=== PATIENT | female | born 1995 | race Two or more races ===

== ENCOUNTER → 2024-03-12 | Outpatient (REF) | payer OTHER ==
[2024-03-15 11:57] LABS: HPV APTIMA Not Detected (Not Detected)
== END ==
LOC: M SFHCWAGY 17:46
PROVIDERS: ATTEND Nurse Practitioner Family
DX: Z12.4 Encounter for screening for malignant neoplasm of cervix (principal); R87.5 Abnormal microbiological findings in specimens from female genital organs
CPT/HCPCS: 87624; G0123

== ENCOUNTER → 2025-04-23 | Outpatient (REF) | payer OTHER ==
[2025-04-28 04:07] LABS: HPV APTIMA Not Detected (Not Detected)
== END ==
LOC: M PLALAB 13:52
PROVIDERS: ATTEND Physician Assistant
DX: Z12.4 Encounter for screening for malignant neoplasm of cervix (principal)
CPT/HCPCS: 87624; G0123

== ENCOUNTER → 2025-05-18 | Outpatient (CLI) | payer OTHER ==
[2025-05-18 14:16] LABS: FREE T4 1.11 NG/DL (0.89-1.76)
[2025-05-18 14:17] LABS: LUTEINIZING HORMONE 2.7 mIU/ML; PROGESTERONE 10.3 NG/ML; PROLACTIN 12.29 NG/ML
== END ==
LOC: M PLALAB 09:52
PROVIDERS: ATTEND Specialist
DX: N92.6 Irregular menstruation, unspecified (principal)

== ENCOUNTER 2025-05-29 10:04 | Emergency (ER) | payer OTHER ==
[~2025-05-29] VITALS: Ht 157.5 cm; Wt 65.6 kg
[2025-05-29 12:07] LABS: PLATELET COUNT, AUTOMATED 230 10^3/uL (150-450)
[2025-05-29 12:26] LABS: KETONE, URINE AUTO RFX NEGATIVE (NEGATIVE); LEUKOCYTE ESTERASE UR AUTO RFX NEGATIVE (NEGATIVE); NITRITE, URINE AUTO RFX NEGATIVE (NEGATIVE); RBC, URINE AUTO RFX 0 /HPF (0-3); SQUAM EPITHELIAL CELL UR AURFX 1 /HPF (0-6); WBC, URINE AUTO RFX 0 /HPF (0-3)
[2025-05-29] MEDS ORDERED: ACETAMINOPHEN 325 MG TAB As Ordered ONE (14:30)
[2025-05-29] MEDS: ACETAMINOPHEN 325 MG TAB PO ONE (14:34)
[2025-05-29 15:00] VITALS: BP 109/66
[2025-05-29] MEDS ORDERED: HYDR-3713 PO (15:12)
[2025-05-29] MEDS ORDERED: MIRA3350 PO (15:12)
[2025-05-29 15:15] VITALS: TEMP 97.3; O2SAT 100
== END 2025-05-29 15:24 | disposition home or self-care (01) ==
LOC: M ED 10:04
DX: O20.0 Threatened abortion (principal); Z3A.00 Weeks of gestation of pregnancy not specified; Z79.1 Long term (current) use of non-steroidal anti-inflammatories (NSAID)

== ENCOUNTER → 2025-06-01 | Outpatient (CLI) | payer OTHER ==
[~2025-06-01] MED LIST: HYDR-3713 PO; MIRA3350 PO
== END ==
LOC: M PLALAB 10:15
PROVIDERS: ATTEND Physician Assistant
DX: O20.0 Threatened abortion (principal); Z3A.00 Weeks of gestation of pregnancy not specified

== ENCOUNTER 2025-06-02 06:35 | Emergency (ER) | payer OTHER ==
[~2025-06-02] VITALS: Ht 157.5 cm; Wt 66.1 kg
[2025-06-02 07:46] LABS: PLATELET COUNT, AUTOMATED 243 10^3/uL (150-450)
[2025-06-02 08:02] LABS: CALCIUM LEVEL 9.1 MG/DL (8.5-10.1); CARBON DIOXIDE LEVEL 27 MMOL/L (20-31); CHLORIDE LEVEL 104 MMOL/L (98-107); CREATININE FOR GFR 0.81 MG/DL (0.55-1.30); GLOMERULAR FILTRATION RATE > 90.0 (>60); HCG, SERUM QUANTITATIVE 2.6 MIU/ML (<4.2); POTASSIUM SERUM 3.8 MMOL/L (3.5-5.1); SODIUM LEVEL 141 MMOL/L (136-145)
[2025-06-02 08:23] VITALS: BP 108/68; TEMP 97.8; O2SAT 100
== END 2025-06-02 08:24 | disposition home or self-care (01) ==
LOC: M ED 06:35
DX: O03.9 Complete or unspecified spontaneous abortion without complication (principal); Z79.1 Long term (current) use of non-steroidal anti-inflammatories (NSAID)